=== PATIENT | female | born 1965 | race African-American/Black ===

== ENCOUNTER 2016-10-18 08:03 | Emergency (ER) | payer OTHER ==
[~2016-10-18] VITALS: Ht 165.1 cm; Wt 90.7 kg
[2016-10-18] MEDS ORDERED: MOBIC15 MG PO (11:15)
[2016-10-18] MEDS ORDERED: NORCO 5-325 TA1 EACH PO (11:23)
[2016-10-18 13:12] VITALS: BP 130/78
== END 2016-10-18 13:13 | disposition home or self-care (01) ==
LOC: ER 08:03
DX: S39.012A Strain of muscle, fascia and tendon of lower back, initial encounter (principal); S29.012A Strain of muscle and tendon of back wall of thorax, initial encounter; S16.1XXA Strain of muscle, fascia and tendon at neck level, initial encounter; Z88.1 Allergy status to other antibiotic agents; Z88.5 Allergy status to narcotic agent; V49.40XA Driver injured in collision with unspecified motor vehicles in traffic accident, initial encounter; Y93.I9 Activity, other involving external motion; Y92.488 Other paved roadways as the place of occurrence of the external cause; Y99.8 Other external cause status

== ENCOUNTER → 2016-11-15 | Outpatient (CLI) | payer OTHER ==
[~2016-11-15] MED LIST: MOBIC15 MG PO; NORCO 5-325 TA1 EACH PO
== END ==
LOC: MRI 12:24
DX: M51.26 Other intervertebral disc displacement, lumbar region (principal); M54.16 Radiculopathy, lumbar region